=== PATIENT | male | born 1960 | race Two or more races ===

== ENCOUNTER 2022-04-13 18:24 | Emergency (ER) | payer OTHER ==
[~2022-04-13] VITALS: Ht 175.3 cm; Wt 100.5 kg
[2022-04-13 21:00] VITALS: BP 149/113
== END 2022-04-13 21:28 | disposition home or self-care (01) ==
LOC: ER 18:27
DX: R04.0 Epistaxis (principal)

== ENCOUNTER 2022-04-15 08:40 | Emergency (ER) | payer OTHER ==
[~2022-04-15] VITALS: Ht 175.3 cm; Wt 96.6 kg
[2022-04-15 10:57] VITALS: BP 140/114
== END 2022-04-15 11:02 | disposition home or self-care (01) ==
LOC: ER 08:40
DX: R04.0 Epistaxis (principal)